=== PATIENT | female | born 1960 | race Caucasian/White ===

== ENCOUNTER 2021-07-07 21:48 | Inpatient (IN) | payer BC ==
[~2021-07-07] VITALS: Ht 160 cm; Wt 84.1 kg
[2021-07-07] MEDS ORDERED: acetaminophen 325mg tablet PO ONE (22:20)
[2021-07-07] MEDS ORDERED: dexamethasone inj 8 MG in normal saline 50ml IV soln 50 ML IV ONE (22:30)
[2021-07-07] MEDS ORDERED: acetaminophen 325mg tablet PO PRN (22:35)
[2021-07-07] MEDS ORDERED: BAMLANIVIMAB IV ONE (22:35)
[2021-07-07] MEDS ORDERED: albuterol 2.5 MG/3 ML nebule NEB PRN (22:35)
[2021-07-07] MEDS ORDERED: famotidine/PF 10 mg/ml inj IV PRN (22:35)
[2021-07-07] MEDS ORDERED: dexamethasone 4mg/ml inj IV ONE (22:35)
[2021-07-07] MEDS ORDERED: hydrocortisone sod succ/PF 100mg/2ml inj. IV PRN (22:35)
[2021-07-07] MEDS ORDERED: diphenhydrAMINE 50 mg/ml inj IV PRN (22:35)
[2021-07-07] MEDS ORDERED: ETESEVIMAB IV ONE (22:35)
[2021-07-07] MEDS ORDERED: NS IV ONE (22:35)
[2021-07-07] MEDS ORDERED: epiNEPHrine 1 mg/ml inj IM PRN (22:35)
[2021-07-07 23:05] LABS: BASOPHILS % (AUTO) 0.3 % (0-1); EOSINOPHILS % (AUTO) 0 % (0-6); HEMATOCRIT 42.3 % (35.0-45.0); HEMOGLOBIN 14.5 g/dl (12.0-16.0); LYMPHOCYTES # (AUTO) 0.6 X10'3 (1.1-4.8); LYMPHOCYTES % (AUTO) 11.5 % (21-51); MEAN CORPUSCULAR HEMOGLOBIN 28.7 PG (27.0-31.0); MEAN CORPUSCULAR HGB CONC 34.3 g/dL (33.0-36.5); MEAN CORPUSCULAR VOLUME 83.5 FL (78-98); MONOCYTES # (AUTO) 0.3 X10'3 (0-0.9); MONOCYTES % (AUTO) 6.2 % (2-12); NEUTROPHILS # (AUTO) 4.5 X10'3 (1.8-7.7); PLATELET COUNT 239 X10'3 (140-440); RED BLOOD COUNT 5.06 X10'6 (4.20-5.60); RED CELL DISTRIBUTION WIDTH 13.5 % (11.5-14.5); WHITE BLOOD COUNT 5.4 X10'3 (4.5-11.0)
[2021-07-07 23:22] LABS: ALANINE AMINOTRANSFERASE 62 U/L (12-78); ALBUMIN 2.6 G/DL (3.4-5.0); ALBUMIN/GLOBULIN RATIO 0.5 (1.1-1.5); ALKALINE PHOSPHATASE 97 IU/L (46-116); ANION GAP 13 (8-16); ASPARTATE AMINO TRANSFERASE 69 U/L (10-37); BILIRUBIN,TOTAL 0.8 MG/DL (0.1-1.0); BLOOD UREA NITROGEN 15 MG/DL (7-18); CALCIUM 8.3 MG/DL (8.5-10.1); CHLORIDE 101 MMOL/L (99-107); CREATININE 0.75 MG/DL (0.40-0.90); GLUCOSE 112 MG/DL (70-104); POTASSIUM 3.2 MMOL/L (3.5-5.1); SODIUM 136 MMOL/L (135-145); TOTAL PROTEIN 7.5 G/DL (6.4-8.2); eGFR 78 ML/MIN
[2021-07-07 23:33] LABS: C-REACTIVE PROTEIN 3.81 MG/DL (0.0-0.5); FERRITIN 333 NG/ML (8-252); LACTATE DEHYDROGENASE 355 U/L (81-234); MAGNESIUM 2.1 MG/DL (1.5-2.4)
[2021-07-07] MEDS ORDERED: potassium Cl 20 mEq SR tablet PO STA (23:46)
[2021-07-07] MEDS ORDERED: DEXA6TAB6 PO (23:49)
[2021-07-08] MEDS ORDERED: ONDA4TAB6 PO (00:37)
[2021-07-08] MEDS ORDERED: ondansetron/PF 4mg/2ml inj IV ONE (00:40)
[2021-07-08] MEDS ORDERED: MONT10TA21 PO (01:46)
[2021-07-08 02:19] LABS: D-DIMER 1.01 MG/L FEU (0-0.50)
[2021-07-08] MEDS ORDERED: iohexol 350MG/ML 100ml bottle IV ONE (02:44)
--- NOTE | 2021-07-08 02:56 | NUR ---
PT TO CT
[2021-07-08] MEDS ORDERED: mag hydrox/Alum hydrox/simeth 30ml oral suspension PO PRN (03:45)
[2021-07-08] MEDS ORDERED: acetaminophen 325mg tablet PO PRN (03:45)
[2021-07-08] MEDS ORDERED: ondansetron/PF 4mg/2ml inj IV PRN (03:45)
[2021-07-08] MEDS ORDERED: potassium Cl 40MEQ/1/2NS 520ml 520 ML IV PRN ×2 (03:45)
[2021-07-08] MEDS ORDERED: magnesium hydroxide 30ml (MOM) UD suspension PO PRN (03:45)
[2021-07-08] MEDS ORDERED: potassium Cl 20 mEq SR tablet PO PRN (03:45)
[2021-07-08] MEDS ORDERED: albuterol 60 PUFF/8GM Inhaler IH PRN (04:10)
[2021-07-08] MEDS: docusate sod 100mg capsule PO SCH ×2 (08:00→20:00)
[2021-07-08] MEDS: dexamethasone inj 6 MG in dextrose 5%-water 100 ML IV SCH ×3 (08:00→20:58)
[2021-07-08] MEDS: K and/or MAG REPLACEMENT MC SCH ×2 (08:00→20:58)
[2021-07-08] MEDS ORDERED: REMDESIVIR 200 MG in NS 100ml IVPB Loading dose IV ONE (08:00)
[2021-07-08] MEDS: montelukast 10mg tablet PO SCH (08:41)
[2021-07-08] MEDS: heparin, porcine 5000 units/ml vial SQ SCH ×2 (08:42→15:57)
[2021-07-08] MEDS ORDERED: ESTR10TA9 VG (13:15)
--- NOTE | 2021-07-08 18:30 | NUR ---
ASSUMED CARE OF PT. PT SITTING UP AND CONVERSES WITH ME WITH FULL SENTENCES. VEGETARIAN MEAL PROVIDED.
[2021-07-08] MEDS: potassium Cl 20 mEq SR tablet PO PRN (20:57)
[2021-07-08 22:34] VITALS: BP 116/52
[2021-07-09] MEDS: heparin, porcine 5000 units/ml vial SQ SCH ×3 (00:56→16:18)
[2021-07-09] MEDS: potassium Cl 20 mEq SR tablet PO PRN (00:57)
[2021-07-09 02:00] VITALS: BP 107/55
--- NOTE | 2021-07-09 06:15 | NUR ---
Problems reprioritized. Patient report given, questions answered & plan of care reviewed with Magaly BANKS. Addendum: 07/09/21 at 0617 by Phyllis Mendosa RN Leanne BANKS
[2021-07-09 06:30] VITALS: BP 114/64
[2021-07-09 07:06] LABS: BASOPHILS % (AUTO) 0.1 % (0-1); EOSINOPHILS % (AUTO) 0 % (0-6); HEMATOCRIT 41.5 % (35.0-45.0); HEMOGLOBIN 14.1 g/dl (12.0-16.0); MEAN CORPUSCULAR HEMOGLOBIN 28.7 PG (27.0-31.0); MEAN CORPUSCULAR HGB CONC 34.1 g/dL (33.0-36.5); MEAN CORPUSCULAR VOLUME 84.1 FL (78-98); MEAN PLATELET VOLUME 7.6 FL (7.4-10.4); MONOCYTES # (AUTO) 0.4 X10'3 (0-0.9); MONOCYTES % (AUTO) 5.4 % (2-12); NEUTROPHILS % (AUTO) 81.5 % (42-75); PLATELET COUNT 278 X10'3 (140-440); RED BLOOD COUNT 4.93 X10'6 (4.20-5.60); RED CELL DISTRIBUTION WIDTH 13.9 % (11.5-14.5); WHITE BLOOD COUNT 7.3 X10'3 (4.5-11.0)
[2021-07-09 07:28] LABS: ALANINE AMINOTRANSFERASE 53 U/L (12-78); ALBUMIN 2.3 G/DL (3.4-5.0); ALBUMIN/GLOBULIN RATIO 0.5 (1.1-1.5); ALKALINE PHOSPHATASE 85 IU/L (46-116); ANION GAP 9 (8-16); ASPARTATE AMINO TRANSFERASE 45 U/L (10-37); BILIRUBIN,TOTAL 0.4 MG/DL (0.1-1.0); BLOOD UREA NITROGEN 15 MG/DL (7-18); BUN/CREATININE RATIO 20.3 (6.6-38.0); CALCIUM 8.6 MG/DL (8.5-10.1); CHLORIDE 107 MMOL/L (99-107); CREATININE 0.74 MG/DL (0.40-0.90); GLUCOSE 116 MG/DL (70-104); POTASSIUM 4.2 MMOL/L (3.5-5.1); SODIUM 141 MMOL/L (135-145); TOTAL PROTEIN 6.8 G/DL (6.4-8.2); eGFR 80 ML/MIN
[2021-07-09] MEDS: docusate sod 100mg capsule PO SCH ×2 (08:00→19:20)
[2021-07-09] MEDS: K and/or MAG REPLACEMENT MC SCH ×2 (08:00→19:15)
[2021-07-09] MEDS: dexamethasone inj 6 MG in dextrose 5%-water 100 ML IV SCH ×2 (08:00→19:20)
[2021-07-09] MEDS: montelukast 10mg tablet PO SCH (08:00)
[2021-07-09] MEDS: REMDESIVIR 100 MG in NS 100ml IVPB IV SCH (09:13)
[2021-07-09 11:02] VITALS: BP 97/56
--- NOTE | 2021-07-09 12:00 | NUR ---
patient up independently in room. sitting up in chair waiting for lunch. o2 sats stable on 2L via nasal cannula.
[2021-07-09 12:55] LABS: D-DIMER 0.55 MG/L FEU (0-0.50)
[2021-07-09 18:00] VITALS: BP 101/59
--- NOTE | 2021-07-09 18:08 | NUR ---
Problems reprioritized. Patient report given, questions answered & plan of care reviewed with DARREN Ferguson.
--- NOTE | 2021-07-09 18:45 | NUR ---
Patient in room [id number] 4012. I have received report from Perlita BANKS and had the opportunity to ask questions and assume patient care.
[2021-07-09 22:00] VITALS: BP 103/57
[2021-07-10] MEDS: heparin, porcine 5000 units/ml vial SQ SCH ×2 (01:09→07:57)
[2021-07-10 02:11] VITALS: BP 106/54
[2021-07-10 06:00] VITALS: BP 97/51
--- NOTE | 2021-07-10 06:40 | NUR ---
Problems reprioritized. Patient report given, questions answered & plan of care reviewed with Adolfo BANKS.
[2021-07-10 07:28] LABS: BASOPHILS % (AUTO) 0.4 % (0-1); EOSINOPHILS % (AUTO) 0 % (0-6); HEMATOCRIT 40.9 % (35.0-45.0); HEMOGLOBIN 13.9 g/dl (12.0-16.0); LYMPHOCYTES % (AUTO) 14.5 % (21-51); MEAN CORPUSCULAR HEMOGLOBIN 28.6 PG (27.0-31.0); MEAN CORPUSCULAR HGB CONC 33.9 g/dL (33.0-36.5); MEAN CORPUSCULAR VOLUME 84.3 FL (78-98); MEAN PLATELET VOLUME 7.6 FL (7.4-10.4); MONOCYTES # (AUTO) 0.5 X10'3 (0-0.9); MONOCYTES % (AUTO) 7.4 % (2-12); NEUTROPHILS # (AUTO) 5.4 X10'3 (1.8-7.7); NEUTROPHILS % (AUTO) 77.7 % (42-75); PLATELET COUNT 328 X10'3 (140-440); RED BLOOD COUNT 4.85 X10'6 (4.20-5.60); RED CELL DISTRIBUTION WIDTH 13.7 % (11.5-14.5); WHITE BLOOD COUNT 6.9 X10'3 (4.5-11.0)
[2021-07-10 07:47] LABS: D-DIMER 0.44 MG/L FEU (0-0.50)
[2021-07-10] MEDS: dexamethasone inj 6 MG in dextrose 5%-water 100 ML IV SCH (07:55)
[2021-07-10] MEDS: docusate sod 100mg capsule PO SCH (07:57)
[2021-07-10] MEDS: montelukast 10mg tablet PO SCH (07:57)
[2021-07-10 08:10] LABS: ALANINE AMINOTRANSFERASE 44 U/L (12-78); ALBUMIN 2.3 G/DL (3.4-5.0); ALBUMIN/GLOBULIN RATIO 0.5 (1.1-1.5); ALKALINE PHOSPHATASE 76 IU/L (46-116); ANION GAP 7 (8-16); ASPARTATE AMINO TRANSFERASE 32 U/L (10-37); BILIRUBIN,TOTAL 0.4 MG/DL (0.1-1.0); BLOOD UREA NITROGEN 18 MG/DL (7-18); C-REACTIVE PROTEIN 0.56 MG/DL (0.0-0.5); CALCIUM 8.6 MG/DL (8.5-10.1); CHLORIDE 107 MMOL/L (99-107); CREATININE 0.72 MG/DL (0.40-0.90); GLUCOSE 114 MG/DL (70-104); POTASSIUM 4.1 MMOL/L (3.5-5.1); SODIUM 140 MMOL/L (135-145); TOTAL CARBON DIOXIDE 25.6 MMOL/L (24-32); TOTAL PROTEIN 6.5 G/DL (6.4-8.2); eGFR 82 ML/MIN
[2021-07-10] MEDS: K and/or MAG REPLACEMENT MC SCH (08:34)
[2021-07-10] MEDS: REMDESIVIR 100 MG in NS 100ml IVPB IV SCH (08:34)
[2021-07-10 10:00] VITALS: BP 105/76
[2021-07-10] MEDS ORDERED: DEXA4TAB67 PO (10:58)
== END 2021-07-10 13:18 | disposition home or self-care (01) | DRG 177 ==
LOC: ER 21:49 → EDSEX 21:49 → ED HOLD 07-08 03:45 → ORTHO 4S 07-08 21:47
PROVIDERS: ADMIT Internal Medicine; ATTEND Family Medicine
PROC: XW033F6 Introduction of Bamlanivimab Monoclonal Antibody into Peripheral Vein, Percutaneous Approach, New Technology Group 6 (ICD-10-PCS; 2021-07-07)
PROC: XW033E5 Introduction of Remdesivir Anti-infective into Peripheral Vein, Percutaneous Approach, New Technology Group 5 (ICD-10-PCS; principal; 2021-07-08)
PROC: B32T1ZZ Computerized Tomography (CT Scan) of Left Pulmonary Artery using Low Osmolar Contrast (ICD-10-PCS; 2021-07-08)
PROC: B3201ZZ Computerized Tomography (CT Scan) of Thoracic Aorta using Low Osmolar Contrast (ICD-10-PCS; 2021-07-08)
PROC: B32S1ZZ Computerized Tomography (CT Scan) of Right Pulmonary Artery using Low Osmolar Contrast (ICD-10-PCS; 2021-07-08)
DX: U07.1 COVID-19 (principal); J12.82 Pneumonia due to coronavirus disease 2019; J96.01 Acute respiratory failure with hypoxia; E87.6 Hypokalemia; J45.909 Unspecified asthma, uncomplicated; Z79.890 Hormone replacement therapy; Z90.710 Acquired absence of both cervix and uterus; Z88.2 Allergy status to sulfonamides; Z79.899 Other long term (current) drug therapy
CPT/HCPCS: 36415; 71045; 71275; 80053; 82728; 83605; 83615; 83735; 84145; 85025; 85379; 85384; 86140; 87040; 87081; 94760; 99285; G0378; J1100; J1644; J2405; J7060; Q0239; Q0245; Q9967